=== PATIENT | female | born 1970 | race Caucasian/White ===

== ENCOUNTER 2018-08-24 16:58 | Emergency (ER) | payer BC ==
[~2018-08-24] VITALS: Ht 162.6 cm; Wt 68.1 kg
[2018-08-24 18:03] VITALS: BP 133/78
== END 2018-08-24 18:33 | disposition home or self-care (01) ==
LOC: ER 16:58
DX: Z76.0 Encounter for issue of repeat prescription (principal); K29.70 Gastritis, unspecified, without bleeding
CPT/HCPCS: 99283